=== PATIENT | male | born 1950 | race Caucasian/White ===

== ENCOUNTER 2017-02-07 20:12 | Emergency (ER) | payer BC ==
[2017-02-07] MEDS ORDERED: NS 0.9% 1000 ML* 1,000 ML IV ONE (20:56)
[2017-02-07] MEDS ORDERED: Ondansetron INJ* 2 MG/ML VIAL IV ONE (20:56)
[2017-02-07 21:44] LABS: Hematocrit 45 % (42-52); Hemoglobin 15.6 g/dl (14.0-18.0); Mean Corpuscular HGB Conc 35 g/dl (31-36); Mean Corpuscular Hemoglobin 30 pg (27-31); Mean Corpuscular Volume 87 fL (80-94); Mean Platelet Volume 8 um3 (7.4-10.4); Red Blood Count 5.18 10^6/ul (4.0-5.4); Red Cell Distribution Width 13 % (10.5-15); White Blood Count 7.7 10^3/ul (3.5-10.8)
[2017-02-07 22:00] LABS: Albumin 4.4 g/dL (3.2-5.2); BUN/Creatinine Ratio 28.4 (8-20); C Reactive Protein 8.17 mg/L (< 5.00); Calcium 8.9 mg/dL (8.6-10.3); EGFR African American 101.4 (>60); EGFR Non-African American 78.8 (>60); Globulin 3.3 g/dL (2-4); Magnesium 1.8 mg/dL (1.9-2.7); Potassium 3.4 mmol/L (3.5-5.0); Total Bilirubin 0.5 mg/dL (0.2-1.0); Total Protein 7.7 g/dL (6.4-8.9)
--- NOTE | 2017-02-07 22:02 | ED ---
Rocio Sahu SooYoung, scribed for Alonso Bass MD on 02/07/17 at 2102 . GI/ HPI - HPI Summary HPI Summary: A 66 y/o M presents to ED with c/o v/d onset yesterday evening. Pt has had 4x episodes of vomiting today, last one at approx 1400, and multiple episodes of diarrhea as well today. Associated sx include exhaustion, clamminess. Pt ate steak and mashed potatoes for dinner last night, and mac & cheese and sausages for lunch. - History of Current Complaint Chief Complaint: EDNauseaVomitDiarrh Time Seen by Provider: 02/07/17 20:53 Stated Complaint: VOMITING Hx Obtained From: Patient Onset/Duration: Started Days Ago - last night, Still Present Timing: Constant Severity: Moderate Current Severity: Mild Pain Intensity: 0 - out of 10 Associated Signs and Symptoms: Positive: Nausea, Vomiting, Diaphoresis, Other: - pos: malaise/exhaustion - Allergy/Home Medications Allergies/Adverse Reactions: Allergies Allergy/AdvReac Type Severity Reaction Status Date / Time Shellfish Allergy Allergy Severe FLUSHING, Verified 09/10/15 15:09 NAUSEA Iodine Allergy PASS Verified 09/10/15 15:09 OUT/SYNCOPAL PMH/Surg Hx/FS Hx/Imm Hx Previously Healthy: Yes Endocrine/Hematology History: Denies: Hx Diabetes, Hx Systemic Lupus Erythematosus, Hx Thyroid Disease Cardiovascular History: Reports: Hx Hypertension - ON MEDS Denies: Hx Congestive Heart Failure, Hx Pacemaker/ICD Respiratory History: Denies: Hx Asthma, Hx Chronic Obstructive Pulmonary Disease (COPD) GI History: Denies: Hx Ulcer History: Denies: Hx Dialysis, Hx Renal Disease Musculoskeletal History: Denies: Hx Rheumatoid Arthritis Sensory History: Denies: Hx Hearing Aid Psychiatric History: Denies: Hx Panic Disorder - Cancer History Hx Chemotherapy: No - Surgical History Surgery Procedure, Year, and Place: tonsillectomy, hernia repair as a child Infectious Disease History: No Infectious Disease History: Denies: Hx Clostridium Difficile, Hx Hepatitis, Hx Human Immunodeficiency Virus (HIV), Hx of Known/Suspected MRSA, Hx Shingles, Hx Tuberculosis, Traveled Outside the [place] in Last 30 Days - Family History Known Family History: Positive: Hypertension - unknown, Diabetes - mother Negative: Cardiac Disease - Social History Occupation: Retired Lives: With Family Alcohol Use: None Substance Use Type: Reports: None Smoking Status (MU): Never Smoked Tobacco Review of Systems Positive: Skin Diaphoresis Positive: Vomiting, Diarrhea Neurological: Other - pos: exhaustion/malaise All Other Systems Reviewed And Are Negative: Yes Physical Exam Triage Information Reviewed: Yes Vital Signs On Initial Exam: Initial Vitals Temp Pulse Resp BP Pulse Ox 99 F 100 18 140/82 96 02/07/17 20:13 02/07/17 20:13 02/07/17 20:13 02/07/17 20:13 02/07/17 20:13 Vital Signs Reviewed: Yes Appearance: Positive: Well-Appearing, No Pain Distress Skin: Positive: Warm Head/Face: Positive: Normal Head/Face Inspection Eyes: Positive: YESSY ENT: Positive: Hearing grossly normal Neck: Positive: Supple Respiratory/Lung Sounds: Positive: Clear to Auscultation, Breath Sounds Present Cardiovascular: Positive: RRR Abdomen Description: Positive: Nontender, No Organomegaly, Soft Bowel Sounds: Positive: Present Musculoskeletal: Positive: Strength/ROM Intact Neurological: Positive: Alert, Oriented to Person Place, Time, Normal Gait Psychiatric: Positive: Affect/Mood Appropriate Diagnostics - Vital Signs Vital Signs Temp Pulse Resp BP Pulse Ox 02/07/17 20:15 99 F 100 18 140/82 96 02/07/17 20:13 99 F 100 18 140/82 96 - Laboratory Lab Results: Lab Results 02/07/17 02/07/17 02/07/17 Range/Units 21:30 21:30 21:30 WBC 7.7 (3.5-10.8) 10^3/ul RBC 5.18 (4.0-5.4) 10^6/ul Hgb 15.6 (14.0-18.0) g/dl Hct 45 (42-52) % MCV 87 (80-94) fL MCH 30 (27-31) pg MCHC 35 (31-36) g/dl RDW 13 (10.5-15) % Plt Count 210 (150-450) 10^3/ul MPV 8 (7.4-10.4) um3 Neut % (Auto) 80.0 (38-83) % Lymph % (Auto) 7.9 L (25-47) % Faulkner % (Auto) 11.3 H (1-9) % Eos % (Auto) 0.2 (0-6) % Baso % (Auto) 0.6 (0-2) % Absolute Neuts (auto) 6.2 (1.5-7.7) 10^3/ul Absolute Lymphs (auto) 0.6 L (1.0-4.8) 10^3/ul Absolute Monos (auto) 0.9 H (0-0.8) 10^3/ul Absolute Eos (auto) 0 (0-0.6) 10^3/ul Absolute Basos (auto) 0 (0-0.2) 10^3/ul Absolute Nucleated RBC 0.01 10^3/ul Nucleated RBC % 0.1 Sodium 134 (133-145) mmol/L Potassium 3.4 L (3.5-5.0) mmol/L Chloride 101 (101-111) mmol/L Carbon Dioxide 24 (22-32) mmol/L Anion Gap 9 (2-11) mmol/L BUN 27 H (6-24) mg/dL Creatinine 0.95 (0.67-1.17) mg/dL Est GFR ( Amer) 101.4 (>60) Est GFR (Non-Af Amer) 78.8 (>60) BUN/Creatinine Ratio 28.4 H (8-20) Glucose 126 H (70-100) mg/dL Lactic Acid 1.3 (0.5-2.0) mmol/L Calcium 8.9 (8.6-10.3) mg/dL Magnesium 1.8 L (1.9-2.7) mg/dL Total Bilirubin 0.50 (0.2-1.0) mg/dL AST 39 (13-39) U/L ALT 46 (7-52) U/L Alkaline Phosphatase 54 (34-104) U/L C-Reactive Protein 8.17 H (< 5.00) mg/L Total Protein 7.7 (6.4-8.9) g/dL Albumin 4.4 (3.2-5.2) g/dL Globulin 3.3 (2-4) g/dL Albumin/Globulin Ratio 1.3 (1-3) Lipase 23 (11.0-82.0) U/L Result Diagrams: 02/07/17 21:30 02/07/17 21:30 Lab Statement: Any lab studies that have been ordered have been reviewed, and results considered in the medical decision making process. Re-Evaluation - Re-Evaluation First Eval Change: Improved - tolerating po GIGU Course/Dx - Course Course Of Treatment: Pt is a 66 y/o M presenting with v/d onset yesterday evening. Pt has had 4x episodes of vomiting today, last one at approx 1400, and multiple episodes of diarrhea as well today. Associated sx include exhaustion, diaphoresis. Pt given fluids, Zofran in ED. Lab results show elevated glucose, CRP and Bun/C ratio. - Diagnoses Provider Diagnoses: Gastroenteritis Discharge - Discharge Plan Condition: Stable Disposition: HOME Patient Education Materials: Gastroenteritis (ED) Referrals: Sarah Mendoza MD [Primary Care Provider] - Additional Instructions: Please return if you experience new or worsening symptoms. Focus on eating a bland diet. The documentation as recorded by the Rocio kwon SooYoung accurately reflects the service I personally performed and the decisions made by me, Alonso Bass MD.
[2017-02-07 22:45] VITALS: BP 162/82
[2017-02-07] MEDS ORDERED: Ondansetron ODT TAB* 4 MG ONE (22:56)
== END 2017-02-07 23:37 | disposition home or self-care (01) ==
LOC: ED 20:12
DX: K52.9 Noninfective gastroenteritis and colitis, unspecified (principal); I10 Essential (primary) hypertension
CPT/HCPCS: 36415; 80053; 83605; 83690; 83735; 85025; 86140; 96360; 96374; 99283; A9270-GY; J2405

== ENCOUNTER 2017-09-07 08:44 | Emergency (ER) | payer BC ==
[2017-09-07 08:53] VITALS: BP 157/91
[2017-09-07] MEDS ORDERED: guaiFENesin/CODIEN 100MG-10MG* 5 ML UDC PO ONE (09:04)
[2017-09-07] MEDS ORDERED: predniSONE TAB* 20 MG PO ONE (09:04)
[2017-09-07] MEDS ORDERED: Azithromycin TAB* 250 MG PO ONE (09:04)
--- NOTE | 2017-09-07 09:04 | UC ---
Respiratory Complaint HPI - HPI Summary HPI Summary: 10 DAYS OF COUGH, CONGESTION, SCRATCHY THROAT, FATIGUE. EARS FEEL PLUGGED. NO FEVER, N/V/D. - History of Current Complaint Chief Complaint: UCGeneralIllness Stated Complaint: COUGH Time Seen by Provider: 09/07/17 08:54 Hx Obtained From: Patient Onset/Duration: Gradual Onset, Lasting Days, Still Present Timing: Constant Severity Initially: Moderate Severity Currently: Moderate Pain Intensity: 7 Pain Scale Used: 0-10 Numeric Character: Cough: Nonproductive Aggravating Factors: Nothing Alleviating Factors: Nothing Associated Signs And Symptoms: Positive: Wheezing, URI, Nasal Congestion. Negative: Fever - Allergies/Home Medications Allergies/Adverse Reactions: Allergies Allergy/AdvReac Type Severity Reaction Status Date / Time Shellfish Allergy Allergy Severe FLUSHING, Verified 09/07/17 08:53 NAUSEA Iodine Allergy PASS Verified 09/07/17 08:53 OUT/SYNCOPAL PMH/Surg Hx/FS Hx/Imm Hx Cardiovascular History: Hypertension - Surgical History Surgical History: Yes Surgery Procedure, Year, and Place: tonsillectomy, hernia repair as a child - Family History Known Family History: Positive: Hypertension - unknown, Diabetes - mother Negative: Cardiac Disease - Social History Alcohol Use: Rare Substance Use Type: None Smoking Status (MU): Never Smoked Tobacco Review of Systems Constitutional: Fatigue ENT: Sore Throat, Ear Ache Respiratory: Cough Cardiovascular: Negative Gastrointestinal: Negative All Other Systems Reviewed And Are Negative: Yes Physical Exam Triage Information Reviewed: Yes Appearance: Well-Appearing, No Pain Distress, Well-Nourished Vital Signs: Initial Vital Signs Temp 98.1 F 09/07/17 08:48 Pulse 81 09/07/17 08:48 Resp 20 09/07/17 08:48 BP 157/91 09/07/17 08:48 Pulse Ox 96 09/07/17 08:48 Vital Signs Reviewed: Yes Eyes: Positive: Conjunctiva Clear ENT: Positive: Hearing grossly normal, Pharynx normal, TMs normal Neck: Positive: Supple, Nontender, No Lymphadenopathy Respiratory Exam: Normal Cardiovascular Exam: Normal Abdomen Description: Positive: Soft Musculoskeletal: Positive: No Edema Neurological: Positive: Alert Psychological: Positive: Age Appropriate Behavior Skin: Negative: rashes UC Diagnostic Evaluation - Laboratory O2 Sat by Pulse Oximetry: 96 Respiratory Course/Dx - Differential Dx/Diagnosis Provider Diagnoses: ACUTE BRONCHITIS Discharge - Discharge Plan Condition: Stable Disposition: HOME Prescriptions: Azithromycin [Azithromycin 500 MG TAB] 500 mg PO DAILY #4 tab Guaifenesin-Codeine [Codeine/Guaifenesin 100-10 mg/5Ml] 5 - 10 ml PO Q6H PRN # 150 ml MDD 40ML PRN Reason: Cough predniSONE TAB* [Deltasone TAB*] 40 mg PO DAILY #8 tab Patient Education Materials: Acute Bronchitis (ED) Referrals: Robb COE,Damari Miller [Primary Care Provider] - If Needed Additional Instructions: YOUR SYMPTOMS MAY BE VIRALLY MEDIATED BUT GIVEN THE LENGTH OF TIME YOU HAVE BEEN ILL WE WILL COVER YOU WITH ANTIBIOTICS. IF YOU START THE MEDICINE BE SURE TO TAKE IT FOR THE FULL COURSE. REST, HYDRATE, OTC MEDS NEEDED. WILL ALSO TREAT WITH PREDNISONE TO HELP WITH AIRWAY INFLAMMATION AND COUGH MEDICINE. SEEK FOLLOW-UP WITH YOUR PCP IF YOU ARE NOT IMPROVING OVER THE NEXT 1-2 WEEKS.
== END 2017-09-07 09:15 | disposition home or self-care (01) ==
LOC: UCEAST 08:44
DX: J20.9 Acute bronchitis, unspecified (principal)
CPT/HCPCS: 99213; A9270-GY; G0463; J7512

== ENCOUNTER 2019-02-08 07:57 | Inpatient (IN) | payer BC ==
--- NOTE | 2019-01-27 10:54 | HP ---
Amended report to enter cosigning physician. HISTORY AND PHYSICAL: DATE OF ADMISSION/SURGERY: 02/08/19 DATE OF OFFICE VISIT: 01/26/19 SURGEON: Danielle Rivas MD* (dictated by VIVI Castillo). PROCEDURE: Right total knee arthroplasty. CHIEF COMPLAINT: Right knee pain. HISTORY OF PRESENT ILLNESS: Mr. Clark is a 68-year-old gentleman with complaints of right knee pain. He has failed conservative treatment and elected to proceed with a right total knee arthroplasty. PAST MEDICAL HISTORY: Seasonal allergies, hypertension, high cholesterol, and sleep apnea. PAST SURGICAL HISTORY: Tonsillectomy and hernia repair. CURRENT MEDICATIONS: 1. Gemfibrozil 600 mg twice a day. 2. [place]-3. 3. Lisinopril/hydrochlorothiazide 20/25 mg a day. 4. Xiidra 5% eye drops. 5. Dymista. 6. ProAir HFA. ALLERGIES: To SHELLFISH and NIASPAN. FAMILY HISTORY: Cancer. SOCIAL HISTORY: He is a 68-year-old gentleman, lives with his . He does not smoke or use drugs. Uses alcohol rarely. REVIEW OF SYSTEMS: A complete 14-point review of systems was reviewed with the patient. It was all negative or noncontributory. He denies issue of DVT, PE, hepatitis, HIV, or anesthesia problems. PHYSICAL EXAMINATION GENERAL: He is well developed, well nourished, in no acute distress. VITAL SIGNS: He stands 5 feet 5 inches tall, weighs 220 pounds. Blood pressure is 130/80, heart rate 76. HEENT: Normocephalic, atraumatic. NECK: Supple. No palpable lymph nodes. PULMONARY: The lungs are clear to auscultation bilaterally. CARDIO: Regular rate and rhythm. Strong S1, S2. ABDOMEN: Soft, nontender, nondistended. NEUROLOGICAL: He is alert and oriented x3. MUSCULOSKELETAL: Right lower extremity, the skin is intact. There are no open wounds or abrasions. Range of motion is 15 to 120 degrees of flexion with patellofemoral crepitus. He has a 2+ dorsalis pedis pulse. He is able to dorsiflex and plantarflex and has intact sensation. ASSESSMENT AND PLAN: Mr. Clark is a 68-year-old gentleman with end-stage osteoarthritis of the right knee. He has failed conservative treatment and elected to proceed with a right total knee arthroplasty. The surgery is scheduled for 02/08/[address] Rivas discussed the risks and benefits of the surgery at today's visit and all of his questions were answered. He will follow with Dr. Rivas 2 weeks after the surgery. VIVI CASTILLO [id number]/[facility] #: [id number] [facility]ENTER[facility]akia
[~2019-02-08 07:57] MED LIST: Buffered Lidocaine 1% SYRIN* 1 ML/SYRINGE INTRADERM ONE; Dexamethasone TAB* 4 MG PO ONE; DiMENhydriNATE IV* 50 MG/ML VIAL IV PUSH PRN; Famotidine IV* 10 MG/ML 2 ML (20 mg) IV ONE; Gabapentin CAP(*) 300 MG PO ONE; HYDROmorphone INJ1* 1 MG/ML SYRINGE IV PRN; Lactated Ringers 1000 ML Bag* 1,000 ML IV SCH; Naloxone* 0.4 MG/ML 1 ML VIAL IV PRN; Ondansetron INJ* 2 MG/ML VIAL IV ONE; PROCHLORPERAZINE INJ 5 MG/ML 2 ML VIAL IV PRN; Tranexamic Acid 1,000 MG in NS 0.9% 50 ML* (outpatient use) IV SCH; fentaNYL* 50 MCG/ML 2 ML VIAL (100 MCG VIAL) IV PRN; oxyCODONE/Acetamin 5/325 MG* TAB PO PRN
[2019-02-08] MEDS ORDERED: Famotidine IV* 10 MG/ML 2 ML (20 mg) ONE (08:19)
[2019-02-08] MEDS ORDERED: Buffered Lidocaine 1% SYRIN* 1 ML/SYRINGE INTRADERM ONE (08:19)
[2019-02-08] MEDS ORDERED: Dexamethasone TAB* 4 MG ONE (08:19)
[2019-02-08] MEDS ORDERED: ceFAZolin 2 GM PREMIX in ORs 2 GM/50 ML BAG IVPB ONE (08:19)
[2019-02-08] MEDS ORDERED: Ondansetron INJ* 2 MG/ML VIAL ONE (08:19)
[2019-02-08] MEDS ORDERED: Gabapentin CAP(*) 300 MG ONE (08:19)
[2019-02-08] MEDS ORDERED: fentaNYL* 50 MCG/ML 2 ML VIAL (100 MCG VIAL) ONE (09:05)
[2019-02-08] MEDS ORDERED: Midazolam* 1 MG/ML 10 ML VIAL (10 MG) ONE (09:05)
[2019-02-08] MEDS ORDERED: KETAMINE HCL* 50 MG/ML 10 ML VIAL ONE (09:05)
[2019-02-08] MEDS ORDERED: Bupivacaine 0.5%* 50 ML VIAL ONE (10:35)
[2019-02-08] MEDS ORDERED: Bupivacaine 0.25% SDV PF* 10 ML VIAL INJ ONE (14:24)
[2019-02-08] MEDS ORDERED: Bupivacaine 0.5% SDV PF* 30ML VIAL ONE (14:24)
[2019-02-08] MEDS ORDERED: Propofol* 500 MG/50 ML BTL ONE (14:24)
[2019-02-08] MEDS ORDERED: Bupivacaine 0.25% W/EPI* 10 ML SDV ONE (14:24)
[2019-02-08] MEDS ORDERED: Ondansetron INJ* 2 MG/ML VIAL IV PRN (14:35)
[2019-02-08] MEDS ORDERED: diPHENhydraMINE PO* 25 MG PO PRN (14:35)
[2019-02-08] MEDS ORDERED: traMADol TAB* 50 MG PO PRN (14:35)
[2019-02-08] MEDS ORDERED: Magnesium Hydroxide LIQ* 30 ML UDC PO PRN (14:35)
[2019-02-08] MEDS ORDERED: Polyethylene Glycol 3350* 17 GM PACKET PO PRN (14:35)
[2019-02-08] MEDS ORDERED: diPHENhydraMINE IV* 50 MG/ML 1 ml VIAL (BENADRYL) IV PRN (14:35)
[2019-02-08] MEDS ORDERED: Cyclobenzaprine TAB* 10 MG PO PRN (14:35)
[2019-02-08] MEDS ORDERED: Morphine 4 MG/ML VIAL (1 ml) 4 MG/ML VIAL IV PRN (14:35)
[2019-02-08] MEDS ORDERED: Bisacodyl SUPP* 10 MG SUPP PR PRN (14:41)
[2019-02-08] MEDS ORDERED: NFT: Azelastine/Fluticasone 137-50 MCG BTL (NF) BOTH NARES PRN (14:43)
[2019-02-08] MEDS ORDERED: Albuterol HFA INHALER* 8 gm MDI INH PRN (14:43)
[2019-02-08] MEDS ORDERED: oxyCODONE/Acetamin 5/325 MG* TAB PO PRN (14:44)
[2019-02-08] MEDS ORDERED: Lactated Ringers 1000 ML Bag* 1,000 ML IV SCH (15:00)
--- NOTE | 2019-02-08 16:18 | PN ---
Progress Note - Progress Note Date of Service: 02/08/19 Note: Patient seen at bedside in PACU s/p Right total knee arthroplasty. He is comfortable, alert and oriented. Denies knee pain. Moving knee, ankle, toes and has full sensation distally.
[2019-02-08] MEDS ORDERED: oxyCODONE/Acetamin 5/325 MG* TAB ONE (16:29)
--- NOTE | 2019-02-08 17:18 | OP ---
Operative Report - Blank - Operative Report Date of Operation: 02/08/19 Note: CHILANGO CLARK 1950 Date of Surgery: 02/08/19 Danielle Rivas MD Director Of Leadership Development: Cielo TRINIDAD did help throughout the procedure with preparation of the knee, wound retraction, manipulation of the knee, and wound closure. Anesthesiologist: Emilia Mckeon MD Anesthesia Type: Spinal Preoperative Diagnosis: Right severe degenerative osteoarthritis of the knee Postoperative Diagnosis: As above Procedure Performed: Right Total Knee Arthroplasty Tourniquet time: 50 minutes Complications: None Specimen: Bone and cartilage from the right knee joint sent to pathology. Hardware Used: Cemented Clark and Nephew total knee hardware was used - For the femur a size 5 right narrow legion posterior stabilized femoral component, for the tibia a size 3 right romario II tibial baseplate, for the insert a size 9mm 3-4 posterior stabilized articular polyethylene insert, and for the patella a size 32 3-peg all poly patella. Brief History/Indication: CHILANGO CLARK was known in clinic and had a history of severe right knee pain and swelling. He failed conservative treatment with anti-inflammatories, pain pills, intra-articular injections and physical therapy. He elected to undergo right total knee arthroplasty due to continued pain and decreased quality of life. Radiographs showed severe end stage osteoarthritis of the knee with bone on bone contact. Informed consent was obtained from the patient. He understood the risks of surgery included but were not limited to: bleeding, infection, damage to nearby structures, intraoperative fracture, nerve palsy, failure of the hardware, early loosening, knee stiffness or loss of motion, anesthesia complications, stroke, heart attack , blood clot and . He wished to proceed. Intra-Operative Findings: Intraoperatively the patient was noted to have severe loss of cartilage in all 3 compartments of the knee. Description of the Procedure: CHILANGO CLARK was identified in the preanesthesia unit. His right knee was marked as the correct operative side. Informed consent was signed and placed in the chart. The patient was taken to the operating room and placed under anesthesia without complication. A lee catheter was placed. A tourniquet was placed on the right thigh. The right lower extremity was prepped and draped in the usual sterile fashion. Preoperative time-out was made to correctly identify the patient, side and site. Appropriate intraoperative antibiotics were given within one hour of incision. Tourniquet was inflated. A midline incision was made and carried sharply down to the extensor mechanism. A new 10 blade was used to make a standard medial parapatellar arthrotomy. The patella was subluxed laterally. Electrocautery was used to dissect soft tissue off the superomedial tibia to the midsagittal plane. The knee was flexed up. The anterior horn of the lateral meniscus and the ACL were sharply incised. A drill was used to enter the distal femur. The intramedullary distal femoral cutting guide was pinned on the distal femur. The oscillating saw was used to make the distal femoral cut. The external rotation guide was pinned on the distal femur and the distal femur was sized to a size 5. The size 5 multi-cutting jig was pinned on the distal femur. The oscillating saw was used to make the appropriate 4 chamfer cuts. Next the PCL was completely released. The extramedullary tibial cutting guide was pinned on the proximal tibia and the oscillating saw was used to make the proximal tibial cut perpendicular to the mechanical axis of the tibia. The bone was carefully removed. The knee was brought out into full extension. The spacer block was placed and had excellent fit with the knee in full extension. The medial and lateral ligaments were well balanced. The flexion and extension gaps were well balanced. The knee was flexed up. Lamina software product specialist was placed both medially and laterally. Any remaining meniscus was removed with electrocautery. Curved osteotome was used to remove any posterior osteophytes. The tibial tray and drop jeniffer were placed and confirmed a satisfactory tibial cut. The size 5 right narrow femoral trial was impacted onto the distal femur. This trial had excellent fit and stability. The box for the posterior stabilized implant was prepared using a box cut osteotome and a reamer. Next a tibial tray trial and 9 mm insert trial was placed. The knee was taken through a range of motion and had full extension to 130 degrees of flexion. Patellofemoral tracking was satisfactory. The patella was inverted and sized to a size 32. Three peg holes were drilled through the size 32 drill guide. The trial patella was placed and the knee was taken through a range of motion. There was satisfactory patellofemoral tracking. All trials were removed. The tibia was subluxed anteriorly and sized to a size 3. The proximal tibial was prepared with a size 3 keel punch. All bony cut surfaces were irrigated with sterile saline and dried. Final implants were cemented into place starting with the tibia, followed by the femur, and last the patella. A 9 mm insert trial was placed and the knee was brought into full extension. Tourniquet was turned down and the knee was copiously irrigated with sterile saline. Electrocautery was used to obtain meticulous hemostasis. Once the cement had fully cured, the insert trial was removed. Any excess cement was removed from around the hardware and capsule. Final insert chosen was a 9 mm posterior stabilized Romario II articular insert size 3-4. Stability of the insert was checked and noted to be stable. The extensor mechanism was closed using number 1 vicryls. The rest of the incision was closed in a layered fashion using 0 and 2-0 vicryls. The skin was closed using 3-0 nylon suture. Sterile xeroform, 4x4s and webril were used to cover the incision. Leoncio wrap and cold pack were used to cover the dressings. The patients anesthesia was reversed without difficulty. He was taken to the PACU in stable condition. Intended weight-bearing will be as tolerated. CHILANGO CLARK 1950
[2019-02-08] MEDS: Acetaminophen TAB* 325 MG PO SCH (17:35)
[2019-02-08] MEDS: oxyCODONE TAB* 5 MG TAB PO PRN (18:51)
--- NOTE | 2019-02-08 21:08 | CONS ---
CC: Damari Zamudio* CONSULTATION REPORT: DATE OF CONSULT: 02/08/19 PRIMARY CARE PROVIDER: Damari Zamudio PA-C. REQUESTING PHYSICIAN IN CONSULT: Dr. Danielle Rivas. ATTENDING PHYSICIAN: Dr. Pressley (dictated by VIVI Archibald). REASON FOR CONSULTATION: Co-medical management. HISTORY OF PRESENT ILLNESS/HOSPITAL COURSE: I refer you to Dr. Rivas's history and physical dated 01/27/19 for complete details, but in short Mr. Clark is a 68 -year- old male with a past medical history of hypertension, hyperlipidemia, obstructive sleep apnea, and seasonal allergies who presented to [facility] today for an elective right total knee arthroplasty after having failed conservative treatment. He is seen postoperatively on the surgical floor. He denies chest pain, shortness of breath, cough, fever, chills, abdominal pain, nausea, vomiting, diarrhea, constipation, and pain in the calves. He has a Valladares catheter in place. His last bowel movement was yesterday. He is complaining of right knee pain rated at 4/10 and was just given pain medications. PAST MEDICAL HISTORY: 1. Hypertension. 2. Hyperlipidemia. 3. Obstructive sleep apnea, on CPAP. 4. Seasonal allergies. PAST SURGICAL HISTORY: Tonsillectomy, hernia repair. HOME MEDICATIONS: 1. Albuterol 1 puff inhalation daily p.r.n. 2. Azelastine/fluticasone 1 spray to both nares daily p.r.n. for some allergy symptoms. 3. Gemfibrozil 600 mg p.o. b.i.d. 4. Lisinopril/hydrochlorothiazide 20 mg/25 mg p.o. daily. 5. Lifitegrast 1 drop to both eyes daily. 6. [place]-3. DRUG ALLERGIES: IODINE, NIACIN, SHELLFISH. FAMILY HISTORY: Positive for cancer. SOCIAL HISTORY: The patient does not smoke. He rarely uses alcohol. He lives at home with his . REVIEW OF SYSTEMS: A 10-point review of systems was performed and all the pertinent positives and negatives are in the HPI. All other systems are negative. PHYSICAL EXAM: General: Mr. Clark is a well-developed, well-nourished, obese 68- year-old male who is sitting up in bed with the head of the bed elevated and the lower extremities elevated. He appears to be well. He is in no acute distress. HEENT: Visual bates are grossly intact. Pupils are equally round and reactive to light. Extraocular movements are intact. Sclerae are without icterus. Conjunctivae are without pallor. Hearing is grossly intact. Oral mucous membranes are moist. There are no lesions. Pharynx is clear. Cardiovascular: Regular rate and rhythm with S1, S2 present. There are no murmurs, rubs, clicks, or gallops. There is no JVD. Respiratory: Symmetrical chest expansion without use of accessory muscles. Lungs: Clear to auscultation bilaterally without wheezes, rhonchi, or rales. Abdomen is obese. Bowel sounds noted in all quadrants. The abdomen is soft. There is no tenderness to palpation. There is no hepatosplenomegaly noted. Extremities: Skin is warm and smooth bilaterally. There is no clubbing, cyanosis, or edema. The right knee has a clean, dry, and intact dressing in place with cryo unit over the top. Radial and pedal pulses are palpable. Sensation intact distally. Capillary refill less than 2 seconds. The patient is able to move the extremities. Neuro: The patient is awake. He is alert and oriented x3. He is able to move all of his extremities. ASSESSMENT AND PLAN: Mr. Clark is a 68-year-old male with a past medical history of hypertension, hyperlipidemia, and sleep apnea who presented to [facility] today for an elective right total knee arthroplasty. The patient will be admitted for: 1. Right total knee arthroplasty. Management per ortho team. 2. Hypertension. Continue lisinopril, hydrochlorothiazide. 3. Hyperlipidemia. Continue gemfibrozil. 4. Seasonal allergies. Continue home medications of ProAir, lifitegrast, and azelastine/fluticasone nasal spray. 5. Obstructive sleep apnea. Continue home CPAP, which the patient has brought with him. 6. Code status. Full code. 7. DVT prophylaxis. Per ortho. The patient has been placed on apixaban 2.5 mg p.o. b.i.d. TIME SPENT: Approximately 30 minutes were spent on this consultation; greater than half that time was spent with the patient and his obtaining history, performing physical, and reviewing the plan of care. The case has been reviewed with my attending, Dr. Pressley, who is in agreement with the plan of care. WENDY VELASCO, VIVI [id number]/[facility] #: [id number] [facility]
[2019-02-08] MEDS: ceFAZolin 1 GM ADVAN(*) 1 GM in NS 0.9% 50 ML* 50 ML IVPB SCH (21:25)
[2019-02-08] MEDS: oxyCODONE/Acetamin 5/325 MG* TAB PO PRN (22:44)
[2019-02-08] MEDS: Docusate CAP* 100 MG PO SCH (22:44)
[2019-02-08] MEDS: Gemfibrozil TAB* 600 MG PO SCH (22:44)
[2019-02-08] MEDS: Magnesium Hydroxide LIQ* 30 ML UDC PO SCH (22:45)
[2019-02-09] MEDS: Acetaminophen TAB* 325 MG PO SCH ×2 (01:57→09:26)
[2019-02-09] MEDS: oxyCODONE TAB* 5 MG TAB PO PRN ×3 (02:51→11:49)
[2019-02-09] MEDS: oxyCODONE/Acetamin 5/325 MG* TAB PO PRN ×3 (03:53→14:18)
[2019-02-09] MEDS: ceFAZolin 1 GM ADVAN(*) 1 GM in NS 0.9% 50 ML* 50 ML IVPB SCH ×2 (03:54→11:48)
[2019-02-09 05:40] LABS: Hematocrit 37 % (42-52); Hemoglobin 12.4 g/dL (14.0-18.0); Mean Platelet Volume 7.6 fL (7.4-10.4); Platelet Count 215 10^3/uL (150-450)
[2019-02-09 05:58] LABS: BUN/Creatinine Ratio 20.7 (8-20); Calcium 8.7 mg/dL (8.6-10.3); EGFR Non-African American 86.8 (>60); Potassium 4.2 mmol/L (3.5-5.0)
[2019-02-09] MEDS: Docusate CAP* 100 MG PO SCH (08:09)
[2019-02-09] MEDS: Gemfibrozil TAB* 600 MG PO SCH (08:09)
[2019-02-09] MEDS: Magnesium Hydroxide LIQ* 30 ML UDC PO SCH (08:10)
[2019-02-09] MEDS ORDERED: Apixaban* 2.5 MG TAB PO SCH (09:00)
[2019-02-09] MEDS ORDERED: Hydrochlorothiazide TAB* 25 MG PO SCH (09:00)
[2019-02-09] MEDS ORDERED: LIFITEGRAST BOTH EYES SCH (09:00)
[2019-02-09] MEDS ORDERED: Lisinopril TAB* 10 MG PO SCH (09:00)
--- NOTE | 2019-02-09 10:47 | PN ---
Progress Note - Progress Note Date of Service: 02/09/19 SOAP: Subjective: [] Lee was seen at bedside today. Right knee pain is well controlled. Denies CP, SOB, dizziness, nausea. Objective: []General: Appears well, NAD RLE: Right knee dressing CDI, thigh is soft, DF/PF intact, sensation intact to light touch distally, DP2+ Calves supple and nontender without erythema, edema or palpable cords Assessment: [] POD 1 sp Right total knee replacement Plan: []WBAT PT/OT eliquis 2.5 mg po BID x 30 days DC home today with VNS if PT goals met this afternoon Vital Signs Temp 98.4 F 02/09/19 07:35 Pulse 73 02/09/19 07:35 Resp 18 02/09/19 10:43 BP 120/79 02/09/19 07:35 Pulse Ox 96 02/09/19 08:00 Intake & Output 02/08/19 02/09/19 02/09/19 18:59 06:59 18:59 Intake Total 2440 760 Output Total 1000 1200 0 Balance 1440 -440 0 Weight 219 lb Intake: IV Fluids 2200 LR 2200 Oral 240 760 Output: Urine 1200 0 Valladares 1000 Laboratory Last Values Hgb 12.4 g/dL (14.0-18.0) L 02/09/19 05:19 Hct 37 % (42-52) L 02/09/19 05:19 Plt Count 215 10^3/uL (150-450) 02/09/19 05:19 MPV 7.6 fL (7.4-10.4) 02/09/19 05:19 Sodium 136 mmol/L (135-145) 02/09/19 05:19 Potassium 4.2 mmol/L (3.5-5.0) 02/09/19 05:19 Chloride 102 mmol/L (101-111) 02/09/19 05:19 Carbon Dioxide 29 mmol/L (22-32) 02/09/19 05:19 Anion Gap 5 mmol/L (2-11) 02/09/19 05:19 BUN 18 mg/dL (6-24) 02/09/19 05:19 Creatinine 0.87 mg/dL (0.67-1.17) 02/09/19 05:19 Est GFR ( Amer) 105.0 (>60) 02/09/19 05:19 Est GFR (Non-Af Amer) 86.8 (>60) 02/09/19 05:19 BUN/Creatinine Ratio 20.7 (8-20) H 02/09/19 05:19 Glucose 127 mg/dL (70-100) H 02/09/19 05:19 Calcium 8.7 mg/dL (8.6-10.3) 02/09/19 05:19
--- NOTE | 2019-02-09 11:13 | DS ---
Orthopedic Discharge Summary - Discharge Summary Date of Admission:02/08/19 Date of Discharge: 02/09/19 Date of Surgery: 02/08/19 Attending Orthopedic Provider: Dr Rivas Pre-operative Diagnosis: right knee osteoarthritis Operative Procedure: right total knee arthroplasty Disposition of Patient: home Condition of Patient: stable History: CHILANGO CASTELLANOS is a 68 year old M with years of increasingly severe right knee pain. Patient has failed conservative management and has elected to undergo a right total knee replacement Hospital Course: CHILANGO was admitted to [facility] on 02/08/19. Patient underwent a right total knee replacement without complication followed by a brief recovery in PACU and transfer to the Short Stay Surgical Unit in stable condition. Our hospitalist service, physical therapy and occupational therapy also participated in this patients care. Post-op day 1: patient was alert and in no acute distress. Dressing was clean, dry and intact. Operative extremity dorsiflexion and plantarflexion intact, sensation intact to light touch distally, DP2+. Dressing changed prior to discharge, incision CDI without surrounding erythema or discharge. Stable for discharge. Physical therapy goals were met. Home Medications Medication Instructions Recorded Confirmed Type Lisinopril/HCTZ 20(NF) 1 tab PO QAM 07/23/15 02/08/19 History Zestoretic (NF) Gemfibrozil TAB* [Lopid TAB*] 600 mg PO BID 09/10/15 02/08/19 History [place]-3 Fatty Acids/Fish Oil 2 cap PO BID 09/10/15 02/08/19 History [[place] 3 1,000 mg Softgel] Albuterol inh POWDER (NF) [Proair 1 puff INH DAILY PRN 01/26/19 02/08/19 History Respiclick] Azelastine/Fluticasone KAREN(NF 1 spray BOTH NARES DAILY PRN 01/26/19 02/08/19 History [Dymista(NF)] Lifitegrast (NF) [Xiidra (NF)] 1 drop BOTH EYES DAILY 01/26/19 02/08/19 History Acetaminophen TAB* [Tylenol TAB*] 975 mg PO Q8H tab MDD 4000 mg 02/09/19 Rx Apixaban* [Eliquis*] 2.5 mg PO BID 30 Days #60 tab 05/29/19 Rx Docusate CAP* [Colace Cap*] 100 mg PO BID PRN #90 cap 02/09/19 Rx oxyCODONE/Acetamin 5/325 MG* 1 tab PO Q3H PRN tab 02/09/19 Rx [Percocet 5/325 TAB*] oxyCODONE/Acetamin 5/325 MG* 2 tab PO Q3H PRN #70 tab MDD 10 02/09/19 Rx [Percocet 5/325 TAB*] Discharge Instructions following Orthopedic Surgery: Activity: * Weight Bearing as tolerated * Continue physical therapy and occupational therapy exercises as shown * Home physical therapy Wound care: * OK to shower on post-op day 3, no bathing, swimming, or submerging wound. * Use gentle soap, pat dry. Cover with gauze, LUIZ wrap or tape. * Visiting home nurse to do wound checks. Call Orthopedic office for: * Increased drainage * Redness * Increased pain * Fever Go to ER with shortness of breath or chest pain. Diet: * Regular diet * Increase fluids and fiber to prevent constipation. * Continue to use stool softeners, call office if no bowel motion within 48 hours. Medications See Home Medication List in your packet for medications that you should take after discharge. DVT Prophylaxis: Eliquis Dosin.5 mg, 1 tab every 12 hours x 30 days. Medication increases bleeding tendency Pain Control: Percocet Dosin/325 mg 1-2 tabs by mouth every 4-6 hours as needed for pain. Maximum of 10 tabs per day. Hold for sedation. Wean off as soon as pain allows. Please note that Percocet contains Tylenol (acetaminophen). Maximum daily dose of Tylenol is 4000 mg from all sources. Antibiotics are required prior to any dental work. FOLLOW UP: Follow up with [Rob] Within 10-14 days, call for appointment Please call our office with any questions or concerns ([phone]) RX to [facility]
[2019-02-09 11:23] VITALS: BP 137/74
== END 2019-02-09 14:35 | disposition home health service (06) | DRG 302 ==
LOC: AA 07:57 → SSU 14:35
PROVIDERS: ADMIT Orthopaedic Surgery Adult Reconstructive Orthopaedic Surgery; ATTEND Orthopaedic Surgery Adult Reconstructive Orthopaedic Surgery
PROC: 0SRC0J9 Replacement of Right Knee Joint with Synthetic Substitute, Cemented, Open Approach (ICD-10-PCS; principal; 2019-02-08 11:00)
DX: M17.11 Unilateral primary osteoarthritis, right knee (principal); I10 Essential (primary) hypertension; E78.00 Pure hypercholesterolemia, unspecified; G47.33 Obstructive sleep apnea (adult) (pediatric); E78.5 Hyperlipidemia, unspecified; J30.2 Other seasonal allergic rhinitis; H61.21 Impacted cerumen, right ear; M25.761 Osteophyte, right knee; E66.9 Obesity, unspecified; Z88.8 Allergy status to other drugs, medicaments and biological substances; Z91.013 Allergy to seafood; Z68.35 Body mass index [BMI] 35.0-35.9, adult
CPT/HCPCS: 36415; 80048; 85014; 85018; 85049; A9270-GY; C1776; J0690; J2250; J2405; J2704; J3010; J3490; J8540

== ENCOUNTER → 2019-03-06 18:26 | Emergency (ER) | payer BC ==
[2019-03-06 18:49] VITALS: BP 134/77
== END | disposition left against medical advice (07) ==
LOC: ED 18:26
DX: Z53.21 Procedure and treatment not carried out due to patient leaving prior to being seen by health care provider (principal)
CPT/HCPCS: 99282

== ENCOUNTER 2019-03-07 07:40 | Emergency (ER) | payer BC ==
[2019-03-07 07:54] VITALS: BP 136/78
--- NOTE | 2019-03-07 08:17 | UC ---
UC General HPI - HPI Summary HPI Summary: Patient is a 68-year-old male who presents to the urgent care with with a chief complaint of having generalized malaise, weakness, decreased appetite, fatigue and no energy. He reports that he had a right total knee replacement 3 weeks ago he was doing well. He denies any headache, denies any sore throat, denies any chest pain shortness of breath or palpitations. He denies any abdominal pain, diarrhea or constipation. He reports he had one episode of nausea and vomiting yesterday. He denies any dysuria or any UTI symptoms. He has no other complaints. - History of Current Complaint Chief Complaint: UCGeneralIllness Stated Complaint: MALAISE Time Seen by Provider: 03/07/19 08:11 Hx Obtained From: Patient Onset/Duration: Gradual Onset Timing: Constant Onset Severity: Mild Current Severity: None Pain Intensity: 0 - Allergy/Home Medications Allergies/Adverse Reactions: Allergies Allergy/AdvReac Type Severity Reaction Status Date / Time niacin Allergy See Comment Verified 03/07/19 07:55 [From Niaspan Extended-Release] shellfish derived Allergy flushing, Verified 03/07/19 07:55 nausea iodine AdvReac fainting Verified 03/07/19 07:55 Home Medications: Home Medications Ubidecarenone [Coq-10] 1 tab PO DAILY 03/07/19 [History Confirmed 03/07/19] PMH/Surg Hx/FS Hx/Imm Hx Previously Healthy: Yes Endocrine History: Dyslipidemia Cardiovascular History: Hypertension - Surgical History Surgical History: Yes Surgery Procedure, Year, and Place: tonsillectomy,. hernia repair as a child , . FINGER AMPUTATION AND REATTACHMENT INDEX LEFT HAND. right total knee replacement 02/2019 - Family History Known Family History: Positive: Hypertension - unknown, Diabetes - mother Negative: Cardiac Disease - Social History Alcohol Use: Rare Alcohol Amount: 1-2 per year Substance Use Type: None Smoking Status (MU): Never Smoked Tobacco - Immunization History Most Recent Influenza Vaccination: 2018 Most Recent Pneumonia Vaccination: 2018 Review of Systems All Other Systems Reviewed And Are Negative: Yes Constitutional: Positive: Fatigue Skin: Positive: Negative Eyes: Positive: Negative ENT: Positive: Negative Respiratory: Positive: Negative Cardiovascular: Positive: Negative Gastrointestinal: Positive: Negative Genitourinary: Positive: Negative Motor: Positive: Negative Neurovascular: Positive: Negative Musculoskeletal: Positive: Negative Neurological: Positive: Negative Psychological: Positive: Negative Is Patient Immunocompromised?: No Physical Exam - Summary Physical Exam Summary: VITAL SIGNS: Reviewed. GENERAL: Patient is a well developed and nourished male who is lying comfortable in the stretcher. Patient is not in any acute respiratory distress. HEAD AND FACE: No signs of trauma. No ecchymosis, hematomas or skull depressions. No sinus tenderness. EYES: PERRLA, EOMI x 2, No injected conjunctiva, no nystagmus. EARS: Hearing grossly intact. Ear canals and tympanic membranes are within normal limits. MOUTH: Oropharynx within normal limits. NECK: Supple, trachea is midline, no adenopathy, no JVD, no carotid bruit, no c- spine tenderness, neck with full ROM. CHEST: Symmetric, no tenderness at palpation LUNGS: Clear to auscultation bilaterally. No wheezing or crackles. CVS: Regular rate and rhythm, S1 and S2 present, no murmurs or gallops appreciated. ABDOMEN: Soft, non-tender. No signs of distention. No rebound no guarding, and no masses palpated. Bowel sounds are normal. EXTREMITIES: FROM in all major joints, no edema, no cyanosis or clubbing. NEURO: Alert and oriented x 3. No acute neurological deficits. Speech is normal and follows commands. SKIN: Dry and warm Triage Information Reviewed: Yes Appearance: Well-Appearing Vital Signs: Initial Vital Signs Temp 99.5 F 03/07/19 07:48 Pulse 92 03/07/19 07:48 Resp 18 03/07/19 07:48 BP 136/78 03/07/19 07:48 Pulse Ox 95 03/07/19 07:48 Course/Dx - Course Course Of Treatment: In the urgent care course the patient is well-appearing and in no acute distress. The patient is not tachycardic or hypoxic to think that the patient has a pulmonary embolism. He denies any calf pain to think that the patient has a DVT. Chest x-ray impression: Negative for acute process Urinalysis: One plus protein, 1+ blood, bilirubin is 2+, and urobilinogen limits more than 8. Therefore no acute urinary tract infection. At this point we did not find any type of infection and also the urine. Because of the symptoms are so vague and I recommended for the patient to follow with the primary care physician tomorrow or if any other symptoms the course the patient should go immediately to the emergency room for further workup and management. I discussed all the findings and test results with the patient. Patient was instructed to go to the emergency room immediately if any of the symptoms return or worsens. They were explained the possibility of an early abdominal pathology which was not detected at this time despite the physical exam and testing. They understand and agree. Abdominal exam before discharge: Soft, NT. No signs of distention. BS present. No rebound no guarding, and no masses palpated. Patient is alert and oriented and hemodynamically stable. Patient is to follow up with primary care physician in the next 2 to 3 days. Patient agrees and understands. - Diagnoses Provider Diagnosis: Weakness Discharge - Sign-Out/Discharge Documenting (check all that apply): Patient Departure All imaging exams completed and their final reports reviewed: Yes - Discharge Plan Condition: Stable Disposition: HOME Patient Education Materials: Weakness (ED) Referrals: Damari Zamudio PA [Primary Care Provider] - Additional Instructions: Increase your fluid intake F/U with PCP in the next 2-3 days Return to the if symptoms worsen or go to the emergency department. - Billing Disposition and Condition Condition: STABLE Disposition: Home
== END 2019-03-07 08:45 | disposition home or self-care (01) ==
LOC: UCEAST 07:40
DX: R53.1 Weakness (principal); E78.5 Hyperlipidemia, unspecified; I10 Essential (primary) hypertension
CPT/HCPCS: 71046; 81003; 99211; G0463

== ENCOUNTER 2019-03-12 14:07 | Emergency (ER) | payer BC ==
[2019-03-12 15:23] LABS: ABS Eosinophils 0.1 10^3/ul (0-0.6); ABS Lymphocytes 1.5 10^3/ul (1.0-4.8); ABS Monocytes 0.9 10^3/ul (0-0.8); ABS Neutrophils 8.5 10^3/ul (1.5-7.7); Eosinophil % 0.8 %; Hematocrit 40 % (42-52); Hemoglobin 13.7 g/dL (14.0-18.0); Lymphocyte % 13.8 %; Mean Corpuscular HGB Conc 35 g/dL (31-36); Mean Corpuscular Hemoglobin 30 pg (27-31); Mean Corpuscular Volume 87 fL (80-94); Mean Platelet Volume 6.9 fL (7.4-10.4); Platelet Count 431 10^3/uL (150-450); Red Blood Count 4.56 10^6 /uL (4.18-5.48); Red Cell Distribution Width 14 % (10-15); White Blood Count 11.1 10^3/uL (3.5-10.8)
[2019-03-12 15:31] LABS: Activated Partial Thrombo Time 37.4 seconds (26.0-38.0); INR 1.05 (0.82-1.09)
[2019-03-12 15:42] LABS: Albumin 4.2 g/dL (3.2-5.2); BUN/Creatinine Ratio 33.3 (8-20); C Reactive Protein 106.73 mg/L (<8.01); EGFR African American 97.2 (>60); EGFR Non-African American 80.3 (>60); Globulin 4.3 g/dL (2-4); Total Bilirubin 0.6 mg/dL (0.2-1.0); Total Protein 8.5 g/dL (6.4-8.9)
[2019-03-12] MEDS ORDERED: DOXYcycline IV* 100 MG in NS 0.9% 250 ML* 250 ML IVPB ONE (15:57)
[2019-03-12] MEDS ORDERED: NS 0.9% 1000 ML** 1,000 ML IV ONE (16:09)
[2019-03-12] MEDS ORDERED: NS 0.9% 250 ML* 250 ML ONE (16:48)
[2019-03-12 16:57] LABS: Erythrocyte Sed Rate 60 mm/Hr (0-19)
[2019-03-12 18:25] VITALS: BP 124/60
--- NOTE | 2019-03-13 07:07 | ED ---
Skin Complaint - HPI Summary HPI Summary: Patient is a 68-year-old male presenting to the ED with concern for a right knee infection. S/p TKR [address] Rivas. Denies any complications since that time and flexion and extension are intact. He states this morning he developed redness and warmth to the right knee immediately following a rash to the bilateral upper arms, chest and 1 to the back. He denies any pain. He denies any fevers, sweats, chills. He states he has been feeling otherwise well. Denies any abdominal pain, nausea, vomiting. He has no pain to the right knee. - History of Current Complaint Chief Complaint: EDExtremityLower Time Seen by Provider: 03/12/19 15:02 Stated Complaint: "BLOOD IN URINE PER , POST OP RT KNEE REDNESS" Hx Obtained From: Patient Onset/Duration: Started Hours Ago Skin Exposure Onset/Duration: Hours Ago Timing: Constant Current Severity: None Pain Intensity: 0 Pain Scale Used: 0-10 Numeric Skin Location: Diffuse - bilateral upper arms, back and chest with large EM rash , erythema to the R lateral ankle, R inner upper thigh and R knee Aggravating Symptom(s): Nothing Alleviating Symptom(s): Nothing Associated Signs & Symptoms: Negative Related History: Possible Reaction to: Insect - Additional Pertinent History Primary Care Physician: NAVNEET - Allergy/Home Medications Allergies/Adverse Reactions: Allergies Allergy/AdvReac Type Severity Reaction Status Date / Time niacin Allergy See Comment Verified 03/07/19 07:55 [From Niaspan Extended-Release] shellfish derived Allergy flushing, Verified 03/07/19 07:55 nausea iodine AdvReac fainting Verified 03/07/19 07:55 PMH/Surg Hx/FS Hx/Imm Hx Previously Healthy: Yes Endocrine/Hematology History: Denies: Hx Diabetes, Hx Systemic Lupus Erythematosus, Hx Thyroid Disease Cardiovascular History: Reports: Hx Hypertension - ON MEDS Denies: Hx Congestive Heart Failure, Hx Pacemaker/ICD, Other Cardiovascular Problems/Disorders Respiratory History: Reports: Hx Sleep Apnea Denies: Hx Asthma, Hx Chronic Obstructive Pulmonary Disease (COPD), Other Respiratory Problems/Disorders GI History: Denies: Hx Ulcer, Other GI Disorders History: Denies: Hx Dialysis, Hx Renal Disease Musculoskeletal History: Reports: Hx Arthritis - right knee Denies: Hx Rheumatoid Arthritis Sensory History: Reports: Hx Contacts or Glasses - glasses Denies: Hx Hearing Aid Opthamlomology History: Reports: Hx Contacts or Glasses - glasses Psychiatric History: Denies: Hx Panic Disorder - Cancer History Hx Chemotherapy: No - Surgical History Surgery Procedure, Year, and Place: tonsillectomy,. hernia repair as a child , . FINGER AMPUTATION AND REATTACHMENT INDEX LEFT HAND. right total knee replacement 02/2019 Hx Anesthesia Reactions: No - Immunization History Date of Tetanus Vaccine: utd Date of Influenza Vaccine: utd Hx Pertussis Vaccination: No Immunizations Up to Date: Yes Infectious Disease History: No Infectious Disease History: Denies: Hx Clostridium Difficile, Hx Hepatitis, Hx Human Immunodeficiency Virus (HIV), Hx of Known/Suspected MRSA, Hx Shingles, Hx Tuberculosis, Hx Known/ Suspected VRSA, History Other Infectious Disease, Traveled Outside the [place] in Last 30 Days - Family History Known Family History: Positive: Hypertension - unknown, Diabetes - mother Negative: Cardiac Disease - Social History Occupation: Unemployed Lives: With Family Alcohol Use: Rare Alcohol Amount: 1-2 per year Hx Substance Use: No Substance Use Type: Reports: None Hx Tobacco Use: No Smoking Status (MU): Never Smoked Tobacco Review of Systems Negative: Fever, Chills, Fatigue, Skin Diaphoresis Negative: Sore Throat Negative: Palpitations, Chest Pain Negative: Shortness Of Breath, Cough Genitourinary: Negative Positive: no symptoms reported, see HPI Negative: Arthralgia, Myalgia, Decreased ROM, Edema Positive: Other - bilateral upper arms, back and chest with large EM rash, erythema to the R lateral ankle, R inner upper thigh and R knee. Negative: Rash Neurological: Negative All Other Systems Reviewed And Are Negative: Yes Physical Exam Triage Information Reviewed: Yes Vital Signs On Initial Exam: Initial Vitals Temp Pulse Resp BP Pulse Ox 98.6 F 97 16 122/86 97 03/12/19 14:10 03/12/19 14:10 03/12/19 14:10 03/12/19 14:10 03/12/19 14:10 Vital Signs Reviewed: Yes Appearance: Positive: Well-Appearing, Well-Nourished Skin: Positive: Skin Color Reflects Adequate Perfusion, Other - bilateral upper arms, back and chest with large EM rash, erythema to the R lateral ankle, R inner upper thigh and R knee Head/Face: Positive: Normal Head/Face Inspection Eyes: Positive: EOMI, YESSY Neck: Positive: Supple, No Lymphadenopathy Respiratory/Lung Sounds: Positive: Clear to Auscultation, Breath Sounds Present Cardiovascular: Positive: RRR, Pulses are Symmetrical in both Upper and Lower Extremities. Negative: Leg Edema Left, Leg Edema Right Musculoskeletal: Positive: Strength/ROM Intact. Negative: Edema Left, Edema Right Neurological: Positive: Sensory/Motor Intact, Alert, Oriented to Person Place, Time, Speech Normal Psychiatric: Positive: Normal, Affect/Mood Appropriate Diagnostics - Vital Signs Vital Signs Temp Pulse Resp BP Pulse Ox 03/12/19 18:25 98.8 F 86 16 124/60 95 03/12/19 18:00 88 96 03/12/19 17:54 86 124/60 95 03/12/19 17:24 87 122/55 97 03/12/19 17:00 88 96 03/12/19 16:55 88 131/67 96 03/12/19 16:24 88 110/59 94 03/12/19 16:00 93 94 03/12/19 15:24 95 123/76 95 03/12/19 14:10 98.6 F 97 16 122/86 97 - Laboratory Lab Results: Lab Results 03/12/19 03/12/19 03/12/19 Range/Units 15:14 15:14 15:14 WBC 11.1 H (3.5-10.8) 10^3/uL RBC 4.56 (4.18-5.48) 10^6 /uL Hgb 13.7 L (14.0-18.0) g/dL Hct 40 L (42-52) % MCV 87 (80-94) fL MCH 30 (27-31) pg MCHC 35 (31-36) g/dL RDW 14 (10-15) % Plt Count 431 (150-450) 10^3/uL MPV 6.9 L (7.4-10.4) fL Neut % (Auto) 77.0 % Lymph % (Auto) 13.8 % [place] % (Auto) 8.0 % Eos % (Auto) 0.8 % Baso % (Auto) 0.4 % Absolute Neuts (auto) 8.5 H (1.5-7.7) 10^3/ul Absolute Lymphs (auto) 1.5 (1.0-4.8) 10^3/ul Absolute Monos (auto) 0.9 H (0-0.8) 10^3/ul Absolute Eos (auto) 0.1 (0-0.6) 10^3/ul Absolute Basos (auto) 0.0 (0-0.2) 10^3/ul Absolute Nucleated RBC 0.0 10^3/ul Nucleated RBC % 0.0 ESR 60 H (0-19) mm/Hr INR (Anticoag Therapy) (0.82-1.09) APTT (26.0-38.0) seconds Sodium 131 L (135-145) mmol/L Potassium 4.0 (3.5-5.0) mmol/L Chloride 94 L (101-111) mmol/L Carbon Dioxide 26 (22-32) mmol/L Anion Gap 11 (2-11) mmol/L BUN 31 H (6-24) mg/dL Creatinine 0.93 (0.67-1.17) mg/dL Est GFR ( Amer) 97.2 (>60) Est GFR (Non-Af Amer) 80.3 (>60) BUN/Creatinine Ratio 33.3 H (8-20) Glucose 115 H (70-100) mg/dL Lactic Acid 1.4 (0.5-2.0) mmol/L Calcium 10.0 (8.6-10.3) mg/dL Total Bilirubin 0.60 (0.2-1.0) mg/dL AST 28 (13-39) U/L ALT 117 H (7-52) U/L Alkaline Phosphatase 187 H (34-104) U/L C-Reactive Protein 106.73 H (<8.01) mg/L Total Protein 8.5 (6.4-8.9) g/dL Albumin 4.2 (3.2-5.2) g/dL Globulin 4.3 H (2-4) g/dL Albumin/Globulin Ratio 1.0 (1-3) 03/12/19 Range/Units 15:14 WBC (3.5-10.8) 10^3/uL RBC (4.18-5.48) 10^6 /uL Hgb (14.0-18.0) g/dL Hct (42-52) % MCV (80-94) fL MCH (27-31) pg MCHC (31-36) g/dL RDW (10-15) % Plt Count (150-450) 10^3/uL MPV (7.4-10.4) fL Neut % (Auto) % Lymph % (Auto) % [place] % (Auto) % Eos % (Auto) % Baso % (Auto) % Absolute Neuts (auto) (1.5-7.7) 10^3/ul Absolute Lymphs (auto) (1.0-4.8) 10^3/ul Absolute Monos (auto) (0-0.8) 10^3/ul Absolute Eos (auto) (0-0.6) 10^3/ul Absolute Basos (auto) (0-0.2) 10^3/ul Absolute Nucleated RBC 10^3/ul Nucleated RBC % ESR (0-19) mm/Hr INR (Anticoag Therapy) 1.05 (0.82-1.09) APTT 37.4 (26.0-38.0) seconds Sodium (135-145) mmol/L Potassium (3.5-5.0) mmol/L Chloride (101-111) mmol/L Carbon Dioxide (22-32) mmol/L Anion Gap (2-11) mmol/L BUN (6-24) mg/dL Creatinine (0.67-1.17) mg/dL Est GFR ( Amer) (>60) Est GFR (Non-Af Amer) (>60) BUN/Creatinine Ratio (8-20) Glucose (70-100) mg/dL Lactic Acid (0.5-2.0) mmol/L Calcium (8.6-10.3) mg/dL Total Bilirubin (0.2-1.0) mg/dL AST (13-39) U/L ALT (7-52) U/L Alkaline Phosphatase (34-104) U/L C-Reactive Protein (<8.01) mg/L Total Protein (6.4-8.9) g/dL Albumin (3.2-5.2) g/dL Globulin (2-4) g/dL Albumin/Globulin Ratio (1-3) Result Diagrams: 03/12/19 15:14 03/12/19 15:14 Lab Statement: Any lab studies that have been ordered have been reviewed, and results considered in the medical decision making process. Course/Dx - Course Course Of Treatment: Patient is evaluated for right knee erythema and warmth since this morning. He states he developed this following a rash to his bilateral upper arms, back and chest. He denies any fevers, sweats, chills. He denies any pain to the knee. On physical examination, there are concentric large erythematous circles with central clearing. No necrotic or vesicular centers. This appears to be Lyme EM rash throughout. Erythema to the lateral right ankle, medial right upper inner thigh which also could be indicative of EM rash, only slight central clearing throughout. Labs obtained which showed an 11,000 white count, 60 ESR, 106 CRP. Blood cultures obtained, sent and are pending. Lyme serology PCR sent and pending. Patient does admit to several tick bites, however he states the last one was approximately 2 weeks ago that he says this happens often. He has never been tested for Lyme in the past. He denies any fevers, sweats, chills. In the ED, vital signs are stable and patient remains afebrile. He appears well, lungs CTA, RRR. There is no obvious effusion to the knee, however the knee is warm and erythematous. The incision is CDI. Flexion and extension remains intact and patient denies any pain on flexion and extension or palpation. Discussed case with Dr. Krause who agrees to see patient in the ED to assess for septic knee. 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 This appears to be cutaneous lyme without arthralgia at this time. Patient will see Radu Simeon on Thursday morning (in 2 days) for follow up . He agrees to return for any worsening or changing symptoms. - Differential Diagnoses - Skin Complaint Differential Diagnoses: Tick Born Illness, Other - early disseminated Lyme disease, arthralgia, cellulitis, erythema migrans, Lyme disease, monarthritis, knee replacement complications - Diagnoses Provider Diagnoses: Erythema migrans (Lyme disease) Discharge - Sign-Out/Discharge Documenting (check all that apply): Patient Departure Patient Received Moderate/Deep Sedation with Procedure: No - Discharge Plan Condition: Stable Disposition: HOME Prescriptions: DOXYcycline CAP(*) [DOXYcycline 100MG CAP(*)] 100 mg PO BID #42 cap Patient Education Materials: Doxycycline (By mouth), Lyme Disease (ED) Referrals: Kamilah OSHEA,Shubham Nieto [Medical Doctor] - Damari Zamudio PA [Primary Care Provider] - Additional Instructions: Please follow up with Dr. Simeon - you will call his office thursday morning for an appt Doxycycline twice daily x 21 days If you develop worsening swelling, you develop pain or fevers - you need to return immediately. - Billing Disposition and Condition Condition: STABLE Disposition: Home
[2019-03-17 01:09] LABS: B garinii/B afzelii PCR Negative (Negative); B mayonii PCR Negative (Negative)
== END 2019-03-12 18:25 | disposition home or self-care (01) ==
LOC: ED 14:07
DX: A26.0 Cutaneous erysipeloid (principal); I10 Essential (primary) hypertension; Z88.8 Allergy status to other drugs, medicaments and biological substances; Z79.899 Other long term (current) drug therapy; Z96.651 Presence of right artificial knee joint
CPT/HCPCS: 36415; 80053; 83605; 85025; 85610; 85652; 85730; 86140; 87040; 87476; 87798; 96365; 96366; 99282